=== PATIENT | female | born 1970 | race Hispanic/Latino ===

== ENCOUNTER → 2025-08-01 | Outpatient (CLI) | payer BC ==
[~2025-08-01] MED LIST: IOHEXOL 350 MG/ML 100ML INFUS..BTL IV ONE
--- NOTE | 2025-08-01 18:08 | CARDIOLOGY ---
RAD REPORT: [facility] CT ANGIO RADIOLOGY REPORT: CORONARY CT ANGIOGRAPHY DATE: Aug 01, 2025 QUALITY: Excellent CLINICAL HISTORY AND INDICATION: [chest pain ] TECHNIQUE: After obtaining a preliminary front end mechanic image, contrast imaging performed on an [employer] [id number] scanner. A dedicated, limited window, coronary imaging protocol was used, with single breath-hold, retrospective ECG gating, and automated arrhythmia rejection. 100 cc of low osmolar contrast agent: Omnipaque 350 was delivered via a 18-gauge IV catheter in the right antecubital fossa, using a power injector and followed by 60 cc of normal saline bolus as a chaser. Collimated images were reformatted at 0.5 mm intervals, and sent to an offline independent workstation for interpretation, using 3D anatomic reconstructions: Curved multiplanar reconstructions, maximum intensity projections, and multiplanar imaging. No metoprolol was administered prior to scanning due to low baseline heart rate. No SL nitroglycerin was given. CORONARY ARTERY DESCRIPTIONS: The coronary arteries arise in normal position. Left main coronary artery: Normal caliber vessel that bifurcates into the LAD and LCx. No stenosis. Left anterior descending coronary artery: Normal caliber vessel and gives rise to diagonal and septal branches. No stenosis. Left circumflex coronary artery: Normal caliber, nondominant and gives rise to a large OM branch. No stenosis. Right coronary artery: Large, dominant vessel giving rise to the PL and PDA branches. No stenosis. CAD-RADs: 0, absence of CAD. Thoracic Aorta: Normal diameter. Yumiko Miramontes MD Cardiovascular Disease [facility] YUMIKO MIRAMONTES MD Aug 01, 2025 18:08
== END | disposition home or self-care (01) ==
LOC: RAH 08:47
PROVIDERS: ATTEND Student in an Organized Health Care Education/Training Program
DX: R07.9 Chest pain, unspecified (principal)
CPT/HCPCS: 75574; Q9967